=== PATIENT | female | born 1995 | race Caucasian/White ===

== ENCOUNTER 2016-10-17 19:49 | Emergency (ER) | payer MEDICAID ==
[~2016-10-17 19:49] MED LIST: BACTRIM DS TAB1 EAC2 PO; BCP PO; DIFLUCAN150 M1 PO; FLAGYL500 M1 PO; HERBAL LIFE PO; IBUPROFEN800 M1 PO; KEFLEX500 M1 PO; NORCO 5-325 TA1 EACH PO; NORCO 5/325 TAB1 TAB PO; PRENATA CHEWAB1 EAC1 PO; PRENATAL PLUS1 EAC3 PO; PYRIDIUM200 M2 PO; ZOFRAN4 MG PO
[2016-10-17 21:18] LABS: URINE BILIRUBIN NEGATIVE (NEG); URINE BLOOD NEGATIVE (NEG); URINE GLUCOSE (UA) NEGATIVE (NEG); URINE KETONE NEGATIVE (NEG); URINE LEUKOCYTE ESTERASE POSITIVE (NEG); URINE NITRITE NEGATIVE (NEG); URINE PROTEIN NEGATIVE (NEG)
[2016-10-17 21:23] LABS: URINE APPEARANCE Y; URINE COLOR PALE YELLOW
[2016-10-17 21:37] LABS: URINE RBC 0 /[HPF] (0-5)
== END 2016-10-17 22:14 ==
LOC: EDMED 19:49
PROVIDERS: Emergency Medicine
DX: O20.0 Threatened abortion (principal); Z3A.01 Less than 8 weeks gestation of pregnancy